=== PATIENT | female | born 1975 | race Caucasian/White ===

== ENCOUNTER → 2018-01-17 | Outpatient (CLI) | payer OTHER ==
--- NOTE | 2018-01-18 08:23 | XR ---
EXAMINATION TYPE: XR abdomen 1V DATE OF EXAM: 01/17/2018 COMPARISON: NONE INDICATION: Kidney stone TECHNIQUE: Single view abdomen supine view FINDINGS: There is a normal colonic bowel gas pattern. Small amount of nonspecific small bowel gas is present. No mass effect is evident. Psoas margins are normal. No organomegaly is present. No suspicious renal calcifications are evident. Postsurgical changes are at the L5-S1 level. IMPRESSION: 1. Unremarkable Abdomen
== END | disposition home or self-care (01) ==
LOC: RADXRMAIN 16:14
PROVIDERS: ATTEND Family Medicine
DX: N20.0 Calculus of kidney (principal)
CPT/HCPCS: 74018

== ENCOUNTER → 2018-01-21 | Outpatient (CLI) | payer OTHER ==
--- NOTE | 2018-01-21 21:38 | CT ---
EXAMINATION TYPE: CT abdomen pelvis wo con DATE OF EXAM: 01/21/2018 COMPARISON: NONE HISTORY: 42-year-old female Right flank pain, calculus of kidney CT DLP: 708.6 mGycm. Automated exposure control for dose reduction was used. TECHNIQUE: Contiguous axial scanning of the abdomen and pelvis without IV contrast. Coronal and sagit dangelo reconstructions performed. FINDINGS: Heart is normal size without pericardial effusion. Tiny hiatal hernia. Lung bases clear without pleur al effusion. Noncontrast appearance of the liver, gallbladder, adrenal glands, left kidney, spleen, and pancreas s how no gross abnormality. There is mild right-sided hydronephrosis with a 6 mm proximal third right ureteral calculus, axial im age 80 and coronal image 44. No dilated small bowel, free fluid, or free air. Scattered borderline size mid mesenteric lymph nodes measuring up to 6 mm are likely reactive/post in flammatory. No retroperitoneal lymphadenopathy. Normal appendix. Mild to moderate stool burden without pericolonic inflammatory change. Bladder partially urine distended. Uterus and both ovaries are visualized. Follicular changes in the left ovary. No abnormal fluid collection in the pelvis or pelvic lymphadenopathy seen. Bones: Posterior fusion changes L5-S1. No osseous destructive process. IMPRESSION: A 6 mm calculus in the proximal third right ureter with mild obstructive uropathy.
== END | disposition home or self-care (01) ==
LOC: RADCTMAIN 18:07
PROVIDERS: ATTEND Family Medicine
DX: N20.1 Calculus of ureter (principal)
CPT/HCPCS: 74176

== ENCOUNTER 2018-12-21 16:09 | Emergency (ER) | payer OTHER ==
[2018-12-21 16:14] VITALS: TEMP 98.8
[2018-12-21] MEDS ORDERED: diphenhydrAMINE 50 MG/ML 1 ML VIAL IVP STA (16:34)
[2018-12-21] MEDS ORDERED: IPRATROPIUM-ALBUTEROL 3 ML NEB INHALATION STA (16:37)
--- NOTE | 2018-12-21 16:37 | ED ---
SOB HPI - General Chief Complaint: Shortness of Breath Stated Complaint: JEFFERY Time Seen by Provider: 12/21/18 16:23 Source: patient, family, RN notes reviewed Mode of arrival: ambulatory Limitations: no limitations - History of Present Illness Initial Comments: This is a 43-year-old female was a nonsmoker no prior history of heart or lung disease personally who does however have a family history of heart disease. He had had his first bout of heart disease at age 45 who presents with cleansing the onset shortness of breath exertional dyspnea that began about 10 PM last evening. She states she did have rhinorrhea clear drainage and thought she was coming down with the usual upper respiratory infection/sinus infection. She did take some Tootie-Aurora plus medication and has never had a reaction to her before she continue to be dyspneic this morning into this afternoon. She was seen at [facility] outpatient clinic given a shot of steroids and an updraft treatment she still persisted having exertional dyspnea. She has slight cough with no phlegm production. She complains some chest tightness. Persistent exertional dyspnea. She presents now for further evaluation. She denies any fevers chills nausea vomiting sweats MD Complaint: shortness of breath, cough - Related Data Home Medications Medication Instructions Recorded Confirmed Dm/Acetaminophen/Doxylamine [Vicks 30 ml PO Q4H PRN 12/21/18 12/21/18 Nyquil Cold-Flu Liquid] Vitamin B Complex 1 cap PO DAILY 12/21/18 12/21/18 Previous Rx's Medication Instructions Recorded Benzonatate [Tessalon Perles] 100 mg PO TID #15 cap 12/21/18 Allergies Allergy/AdvReac Type Severity Reaction Status Date / Time cephalexin monohydrate Allergy Itching Verified 12/21/18 17:03 [From Keflex] loteprednol etabonate Allergy eyes Verified 12/21/18 17:03 [From Zylet] swelled shut tobramycin [From Zylet] Allergy eyes Verified 12/21/18 17:03 swelled shut Review of Systems ROS Statement: Those systems with pertinent positive or pertinent negative responses have been documented in the HPI. ROS Other: All systems not noted in ROS Statement are negative. Past Medical History Additional Past Medical History / Comment(s): kidney stones History of Any Multi-Drug Resistant Organisms: None Reported Past Surgical History: Ablation, Back Surgery, Tubal Ligation Past Psychological History: No Psychological Hx Reported Smoking Status: Never smoker Past Alcohol Use History: None Reported Past Drug Use History: None Reported General Exam - General Exam Comments Initial Comments: This is a well-developed well-nourished awake alert oriented 2 female patient does appear to be hyperventilating Limitations: no limitations General appearance: alert, anxious, in distress Head exam: Present: atraumatic, normocephalic, normal inspection Eye exam: Present: normal appearance, PERRL, EOMI. Absent: scleral icterus, conjunctival injection, periorbital swelling ENT exam: Present: normal exam, mucous membranes moist Neck exam: Present: normal inspection. Absent: tenderness, meningismus, lymphadenopathy Respiratory exam: Present: decreased breath sounds. Absent: respiratory distress, wheezes, rales, rhonchi, stridor Cardiovascular Exam: Present: normal rhythm, tachycardia, normal heart sounds. Absent: systolic murmur, diastolic murmur, rubs, gallop, clicks GI/Abdominal exam: Present: soft, normal bowel sounds. Absent: distended, tenderness, guarding, rebound, rigid Extremities exam: Present: normal inspection, full ROM, normal capillary refill. Absent: tenderness, pedal edema, joint swelling, calf tenderness Back exam: Present: normal inspection Neurological exam: Present: alert, oriented X3, CN II-XII intact Psychiatric exam: Present: normal affect, normal mood Skin exam: Present: warm, dry, intact, normal color. Absent: rash Course Vital Signs 12/21/18 12/21/18 12/21/18 16:10 16:42 16:51 Temperature 98.8 F Pulse Rate 127 H 114 H 110 H Respiratory 40 H Rate Blood Pressure 155/83 O2 Sat by Pulse 100 Oximetry 12/21/18 12/21/18 12/21/18 16:58 17:30 19:47 Temperature Pulse Rate 105 H 105 H 97 Respiratory 32 H 28 H 18 Rate Blood Pressure 126/84 126/83 121/81 O2 Sat by Pulse 100 100 96 Oximetry - Reevaluation(s) Reevaluation #1: 12/21/18 17:12 Patient states she did not get much relief from the DuoNeb treatment. Medical Decision Making - Medical Decision Making Patient was reevaluated several occasions she is feeling much improved at this time she will be discharged she still maintains 100% (room air pulse is return to below 100. She is improved she'll be discharged she is to continue with her medications and I will also place her on Tessalon for a short course. - Lab Data Result diagrams: 12/21/18 16:44 12/21/18 16:44 Lab Results 12/21/18 12/21/18 12/21/18 Range/Units 16:44 16:44 16:44 WBC 8.9 (3.8-10.6) k/uL RBC 5.04 (3.80-5.40) m/uL Hgb 14.2 (11.4-16.0) gm/dL Hct 42.4 (34.0-46.0) % MCV 84.2 (80.0-100.0) fL MCH 28.2 (25.0-35.0) pg MCHC 33.4 (31.0-37.0) g/dL RDW 13.0 (11.5-15.5) % Plt Count 279 (150-450) k/uL Neutrophils % 89 % Lymphocytes % 6 % Monocytes % 4 % Eosinophils % 1 % Basophils % 0 % Neutrophils # 7.9 H (1.3-7.7) k/uL Lymphocytes # 0.5 L (1.0-4.8) k/uL Monocytes # 0.4 (0-1.0) k/uL Eosinophils # 0.1 (0-0.7) k/uL Basophils # 0.0 (0-0.2) k/uL PT (9.0-12.0) sec INR (<1.2) APTT (22.0-30.0) sec D-Dimer (<0.60) mg/L FEU Sodium 139 (137-145) mmol/L Potassium 4.3 (3.5-5.1) mmol/L Chloride 109 H (98-107) mmol/L Carbon Dioxide 18 L (22-30) mmol/L Anion Gap 12 mmol/L BUN 11 (7-17) mg/dL Creatinine 0.95 (0.52-1.04) mg/dL Est GFR (CKD-EPI)AfAm 85 (>60 ml/min/1.73 sqM) Est GFR (CKD-EPI)NonAf 74 (>60 ml/min/1.73 sqM) Glucose 103 H (74-99) mg/dL Calcium 9.5 (8.4-10.2) mg/dL Magnesium 1.6 (1.6-2.3) mg/dL Total Bilirubin 1.0 (0.2-1.3) mg/dL AST 21 (14-36) U/L ALT 19 (9-52) U/L Alkaline Phosphatase 68 (38-126) U/L Total Creatine Kinase 55 (30-135) U/L CK-MB (CK-2) 0.3 (0.0-2.4) ng/mL CK-MB (CK-2) Rel Index 0.5 Troponin I <0.012 (0.000-0.034) ng/mL NT-Pro-B Natriuret Pep pg/mL Total Protein 7.6 (6.3-8.2) g/dL Albumin 4.5 (3.5-5.0) g/dL TSH 2.390 (0.465-4.680) mIU/L Urine Color Urine Appearance (Clear) Urine pH (5.0-8.0) Ur Specific [place] (1.001-1.035) Urine Protein (Negative) Urine Glucose (UA) (Negative) Urine Ketones (Negative) Urine Blood (Negative) Urine Nitrite (Negative) Urine Bilirubin (Negative) Urine Urobilinogen (<2.0) mg/dL Ur Leukocyte Esterase (Negative) Urine RBC (0-5) /hpf Urine WBC (0-5) /hpf Ur Squamous Epith Cells (0-4) /hpf Urine Bacteria (None) /hpf Urine Mucus (None) /hpf Urine HCG, Qual (Not Detectd) 12/21/18 12/21/18 12/21/18 Range/Units 16:44 16:44 18:18 WBC (3.8-10.6) k/uL RBC (3.80-5.40) m/uL Hgb (11.4-16.0) gm/dL Hct (34.0-46.0) % MCV (80.0-100.0) fL MCH (25.0-35.0) pg MCHC (31.0-37.0) g/dL RDW (11.5-15.5) % Plt Count (150-450) k/uL Neutrophils % % Lymphocytes % % Monocytes % % Eosinophils % % Basophils % % Neutrophils # (1.3-7.7) k/uL Lymphocytes # (1.0-4.8) k/uL Monocytes # (0-1.0) k/uL Eosinophils # (0-0.7) k/uL Basophils # (0-0.2) k/uL PT 9.9 (9.0-12.0) sec INR 0.9 (<1.2) APTT 22.5 (22.0-30.0) sec D-Dimer 0.38 (<0.60) mg/L FEU Sodium (137-145) mmol/L Potassium (3.5-5.1) mmol/L Chloride (98-107) mmol/L Carbon Dioxide (22-30) mmol/L Anion Gap mmol/L BUN (7-17) mg/dL Creatinine (0.52-1.04) mg/dL Est GFR (CKD-EPI)AfAm (>60 ml/min/1.73 sqM) Est GFR (CKD-EPI)NonAf (>60 ml/min/1.73 sqM) Glucose (74-99) mg/dL Calcium (8.4-10.2) mg/dL Magnesium (1.6-2.3) mg/dL Total Bilirubin (0.2-1.3) mg/dL AST (14-36) U/L ALT (9-52) U/L Alkaline Phosphatase (38-126) U/L Total Creatine Kinase (30-135) U/L CK-MB (CK-2) (0.0-2.4) ng/mL CK-MB (CK-2) Rel Index Troponin I (0.000-0.034) ng/mL NT-Pro-B Natriuret Pep 73 pg/mL Total Protein (6.3-8.2) g/dL Albumin (3.5-5.0) g/dL TSH (0.465-4.680) mIU/L Urine Color Urine Appearance (Clear) Urine pH (5.0-8.0) Ur Specific [place] (1.001-1.035) Urine Protein (Negative) Urine Glucose (UA) (Negative) Urine Ketones (Negative) Urine Blood (Negative) Urine Nitrite (Negative) Urine Bilirubin (Negative) Urine Urobilinogen (<2.0) mg/dL Ur Leukocyte Esterase (Negative) Urine RBC (0-5) /hpf Urine WBC (0-5) /hpf Ur Squamous Epith Cells (0-4) /hpf Urine Bacteria (None) /hpf Urine Mucus (None) /hpf Urine HCG, Qual Not Detected (Not Detectd) 12/21/18 Range/Units 18:18 WBC (3.8-10.6) k/uL RBC (3.80-5.40) m/uL Hgb (11.4-16.0) gm/dL Hct (34.0-46.0) % MCV (80.0-100.0) fL MCH (25.0-35.0) pg MCHC (31.0-37.0) g/dL RDW (11.5-15.5) % Plt Count (150-450) k/uL Neutrophils % % Lymphocytes % % Monocytes % % Eosinophils % % Basophils % % Neutrophils # (1.3-7.7) k/uL Lymphocytes # (1.0-4.8) k/uL Monocytes # (0-1.0) k/uL Eosinophils # (0-0.7) k/uL Basophils # (0-0.2) k/uL PT (9.0-12.0) sec INR (<1.2) APTT (22.0-30.0) sec D-Dimer (<0.60) mg/L FEU Sodium (137-145) mmol/L Potassium (3.5-5.1) mmol/L Chloride (98-107) mmol/L Carbon Dioxide (22-30) mmol/L Anion Gap mmol/L BUN (7-17) mg/dL Creatinine (0.52-1.04) mg/dL Est GFR (CKD-EPI)AfAm (>60 ml/min/1.73 sqM) Est GFR (CKD-EPI)NonAf (>60 ml/min/1.73 sqM) Glucose (74-99) mg/dL Calcium (8.4-10.2) mg/dL Magnesium (1.6-2.3) mg/dL Total Bilirubin (0.2-1.3) mg/dL AST (14-36) U/L ALT (9-52) U/L Alkaline Phosphatase (38-126) U/L Total Creatine Kinase (30-135) U/L CK-MB (CK-2) (0.0-2.4) ng/mL CK-MB (CK-2) Rel Index Troponin I (0.000-0.034) ng/mL NT-Pro-B Natriuret Pep pg/mL Total Protein (6.3-8.2) g/dL Albumin (3.5-5.0) g/dL TSH (0.465-4.680) mIU/L Urine Color Yellow Urine Appearance Cloudy H (Clear) Urine pH 8.0 (5.0-8.0) Ur Specific [place] 1.023 (1.001-1.035) Urine Protein 1+ H (Negative) Urine Glucose (UA) Negative (Negative) Urine Ketones 2+ H (Negative) Urine Blood Large H (Negative) Urine Nitrite Negative (Negative) Urine Bilirubin Negative (Negative) Urine Urobilinogen <2.0 (<2.0) mg/dL Ur Leukocyte Esterase Moderate H (Negative) Urine RBC 31 H (0-5) /hpf Urine WBC 7 H (0-5) /hpf Ur Squamous Epith Cells 6 H (0-4) /hpf Urine Bacteria Few H (None) /hpf Urine Mucus Few H (None) /hpf Urine HCG, Qual (Not Detectd) - EKG Data -: EKG Interpreted by Me EKG shows normal: sinus rhythm (EKG shows sinus tachycardia rate 109. Interval 122 QRS duration 72 daily since QTC 340/[address]-T wave changes) - Radiology Data Radiology results: report reviewed (I did review the imaging and reports no acute findings.), image reviewed Disposition Clinical Impression: Acute bronchospasm, Upper respiratory infection, Dyspnea, Bronchitis Disposition: HOME SELF-CARE Condition: Good Instructions (If sedation given, give patient instructions): Bronchospasm (ED) , Acute Bronchitis (ED), Upper Respiratory Infection (ED) Prescriptions: Benzonatate [Tessalon Perles] 100 mg PO TID #15 cap Is patient prescribed a controlled substance at d/c from ED?: No Referrals: Lucien Chavez DO [Primary Care Provider] - 1-2 days
[2018-12-21 17:15] LABS: Basophils % (A) 0 %; Eosinophils # (A) 0.1 k/uL (0-0.7); Eosinophils % (A) 1 %; HCT 42.4 % (34.0-46.0); HGB 14.2 gm/dL (11.4-16.0); Lymphocytes # (A) 0.5 k/uL (1.0-4.8); Lymphocytes % (A) 6 %; MCH 28.2 pg (25.0-35.0); MCHC 33.4 g/dL (31.0-37.0); MCV 84.2 fL (80.0-100.0); Mean Platelet Volume 6.6; Monocytes # (A) 0.4 k/uL (0-1.0); Monocytes % (A) 4 %; Neutrophils # (A) 7.9 k/uL (1.3-7.7); Neutrophils % (A) 89 %; Platelet Count 279 k/uL (150-450); RBC 5.04 m/uL (3.80-5.40); WBC 8.9 k/uL (3.8-10.6)
--- NOTE | 2018-12-21 17:25 | XR ---
EXAMINATION TYPE: XR chest 2V DATE OF EXAM: 12/21/2018 COMPARISON: NONE HISTORY: Short of breath TECHNIQUE: Frontal and lateral views of the chest are obtained. FINDINGS: Heart and mediastinum are normal. Lungs are clear. Diaphragm is normal. Bony thorax is nor mal. There are chest leads. IMPRESSION: Normal chest.
[2018-12-21 17:27] LABS: Albumin 4.5 g/dL (3.5-5.0); Calcium 9.5 mg/dL (8.4-10.2); Magnesium 1.6 mg/dL (1.6-2.3); Potassium 4.3 mmol/L (3.5-5.1); Total Protein 7.6 g/dL (6.3-8.2)
[2018-12-21 17:28] LABS: D-Dimer 0.38 mg/L FEU (<0.60); INR 0.9 (<1.2); Partial Thromboplastin Time 22.5 sec (22.0-30.0); Prothrombin Time 9.9 sec (9.0-12.0)
[2018-12-21 17:31] LABS: Creatine Kinase 55 U/L (30-135)
[2018-12-21] MEDS ORDERED: MAGNESIUM SULFATE-D5W PMX 1 GM in DEXTROSE/WATER 1 100ML.BAG IVPB ONE (17:33)
[2018-12-21 17:44] LABS: Creatine Kinase MB 0.3 ng/mL (0.0-2.4); Troponin I <0.012 ng/mL (0.000-0.034)
[2018-12-21] MEDS ORDERED: KETOROLAC 30 MG/ML 1 ML VIAL IVP STA (18:05)
[2018-12-21 18:50] LABS: Appearance,Urine Cloudy (Clear); Bacteria,Urine Few /hpf; Bilirubin,Urine Negative (Negative); Blood,Urine Large (Negative); Color,Urine Yellow; Glucose,Urine (UA) Negative (Negative); Ketones,Urine 2+ (Negative); Leukocyte Esterase,Urine Moderate (Negative); Mucus,Urine Few /hpf; Nitrite,Urine Negative (Negative); Protein,Urine 1+ (Negative); RBC,Urine 31 /hpf (0-5); Specific Gravity,Urine 1.023 (1.001-1.035); Squamous Epithelial Cell,Urine 6 /hpf (0-4); Urobilinogen,Urine <2.0 mg/dL (<2.0); WBC,Urine 7 /hpf (0-5)
[2018-12-21 19:49] VITALS: BP 121/81; PULSE 97; RESP 18
== END 2018-12-21 20:07 | disposition home or self-care (01) ==
LOC: EC 16:09
DX: J40 Bronchitis, not specified as acute or chronic (principal); J06.9 Acute upper respiratory infection, unspecified; J98.01 Acute bronchospasm; Z88.1 Allergy status to other antibiotic agents; Z88.8 Allergy status to other drugs, medicaments and biological substances
CPT/HCPCS: 36415; 94640; 93005; 85379; 83880; 80053; 84443; 82550; 82553; 83735; 84484; 85025; 85610; 85730; 81001; 81025; 87040; 71046; 99285; 96365; 96375 ×2; J1200; J1885; J3475

== ENCOUNTER → 2019-02-09 | Day surgery (SDC) | payer OTHER ==
[2019-02-05 08:45] VITALS: BMI 31.1
[~2019-02-09] MED LIST: LACTATED RINGERS 1,000 ML IV SCH; LIDOCAINE 1% 20 ML VIAL (10MG/ML) FOR IV START INTRADERMA PRN; LIDOCAINE 1% INJ 10MG/ML (20 ML MDV) ONE; PROPOFOL 10 MG/ML 20 ML VIAL IV ONE
[2019-02-09 07:58] VITALS: RESP 16; TEMP 97
--- NOTE | 2019-02-09 08:46 | P.PCN ---
Date of Procedure: 02/09/19 Procedure(s) Performed: Procedure: Esophagogastroduodenoscopy and biopsy. Preoperative diagnosis: Throat complaints with intermittent "throat swelling", rule out reflux disease. Postoperative diagnosis: 1. Small sliding hiatal hernia with LA grade B distal esophagitis. 2. Minimal antral gastritis. 3. Multiple biopsies obtained from the duodenum, antrum and esophagus. Preparation and sedation: Was provided by anesthesia. Brief clinical history: The patient is a 43-year-old female was been experienc ing episodes of throat swelling for the last year, mostly at night, without any heartburn. This has responded partially to acid suppressive therapy. No dysphagia or other alarm symptoms. This evaluation is to assess for esophagitis, complicated reflux disease or other pathology. Procedure: With the patient on her left lateral decubitus position and after informed consent and adequate sedation, I passed the Olympus-GIF H 190 video upper endoscope through the cricopharyngeus down the esophagus. GE junction was around 38 cm from the incisors and there was a small sliding hiatal hernia. The distal esophagus showed short linear erosion terminating at the GE junction but no ulcers, strictures or Lopez's esophagus. The endoscope was then passed into the stomach which was insufflated with air and inspected in detail including the retroflex view in the cardia. There was some minimal mottling and erythema in the antrum but no ulcers or erosions. Pyloric channel, duodenal bulb, post bulbar area and descending duodenum appeared within normal limits. I obtained biopsies from the duodenum, antrum and esophagus then the endoscope was withdrawn. The patient tolerated the procedure well. Plan: The patient was reassured. Will await biopsy results. She will continue antireflux diet and measures and current therapy and she will follow-up with you as planned. I will be happy to see in the office of her symptoms persist.
[2019-02-09 08:57] VITALS: BP 118/81; PULSE 78
== END | disposition home or self-care (01) ==
LOC: ORWHC2ENDO 07:31
DX: K21.0 Gastro-esophageal reflux disease with esophagitis (principal); K29.50 Unspecified chronic gastritis without bleeding; K44.9 Diaphragmatic hernia without obstruction or gangrene; Z88.1 Allergy status to other antibiotic agents; Z88.8 Allergy status to other drugs, medicaments and biological substances; Z79.899 Other long term (current) drug therapy
CPT/HCPCS: 81025; 88305; 43239; J2001; J2704

== ENCOUNTER → 2020-08-31 | Outpatient (CLI) | payer OTHER ==
--- NOTE | 2020-08-31 11:08 | XR ---
EXAMINATION TYPE: XR knee complete RT DATE OF EXAM: 08/31/2020 CLINICAL HISTORY: pain TECHNIQUE: Three views of the right knee are obtained. COMPARISON: None. FINDINGS: There is no acute fracture/dislocation. The tri-compartment joint spaces appear within no rmal limits. The overlying soft tissue appears unremarkable. IMPRESSION: There is no acute fracture or dislocation.ICD 10 NO FRACTURE, INITIAL EVALUATION
== END | disposition home or self-care (01) ==
LOC: RADXRMAIN 10:47
PROVIDERS: ATTEND Family Medicine
DX: M17.11 Unilateral primary osteoarthritis, right knee (principal)

== ENCOUNTER → 2020-12-19 | Outpatient (CLI) | payer OTHER ==
--- NOTE | 2020-12-19 12:14 | US ---
EXAMINATION TYPE: US pelvis complete transvag DATE OF EXAM: 12/19/2020 COMPARISON: NONE CLINICAL HISTORY: R10.2 Pelvic and Perineal pain. TECHNIQUE: Transvaginal (TV) and Transabdominal (TA) . Date of LMP: EXAM MEASUREMENTS: Uterus: 9.4 x 5.3 x 5.9 cm Endometrial Stripe: see below Right Ovary: 2.5 x 1.9 x 2.0 cm Left Ovary: 1.9 x 1.5 x 1.6 cm 1. Uterus: Anteverted 2. Endometrium: fluid collection probably in the endometrium, unable to see normal endometrial tissue to measure endometrium, irregular fluid collection measures 3.1 x 0.7 x 1.6cm, there appears to be a soft tissue mass within measuring 1.2cm 3. Right Ovary: wnl 4. Left Ovary: wnl 5. Bilateral Adnexa: wnl 6. Posterior cul-de-sac: wnl IMPRESSION: 1. Endometrial fluid with the soft tissue mass suggested as noted above. Tissue diagnosis and direct visualization recommended.
== END | disposition home or self-care (01) ==
LOC: RADUSWWP 10:07
PROVIDERS: ATTEND Nurse Practitioner Family
DX: N85.8 Other specified noninflammatory disorders of uterus (principal); M79.89 Other specified soft tissue disorders
CPT/HCPCS: 76830; 76856

== ENCOUNTER 2021-02-02 06:00 | Day surgery (SDC) | payer OTHER ==
[2021-01-31 13:31] VITALS: BMI 31.1
--- NOTE | 2021-02-01 14:30 | P.HPOB ---
History of Present Illness H&P Date: 02/01/21 Chief Complaint: Pelvic pain, history of endometriosis This is a 45 y.o. female, 1, para 1, who presents for laparoscopy, possible ablation of endometriosis, possible lysis of adhesions, possible drainage of ovarian cysts due to pelvic pain. She complains of acute onset of right lower quadrant an suprapubic pain. It was initially was sharp and stabbing, and later changed to a dull ache. It also radiated down right thigh. She did start a period about a week after pain started. The period was heavier and had more clots than she usually has been having since her ablation. Pelvic ultrasound showed uterus measuring 9.4 x 5.3 x 5.9 cm, endometrium had fluid c ollection measuring 3.1 x 0.7 x 1.6 cm with soft tissue mass measuring 1.2 cm. Ovaries appeared normal. She did have a tubal ligation and endometrial ablation in 2015. Since her ablation menses had been occuring every 21-22 days, lasting 1-3 days and very light. OB Hx: . History of 1 vaginal delivery. [employer] Hx: No history of STDs. History of tubal ligation. 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 Review of Systems Constitutional: Denies chills, Denies fever Eyes: denies blurred vision, denies pain Ears, nose, mouth and throat: Denies headache, Denies sore throat Cardiovascular: Denies chest pain, Denies shortness of breath Respiratory: Denies cough Gastrointestinal: Reports abdominal pain, Reports heartburn Genitourinary: Reports dysmenorrhea, Reports pelvic pain Menstruation: Reports menses 1-7 days Musculoskeletal: Reports low back pain, Reports myalgias Integumentary: Denies pruritus, Denies rash Neurological: Denies numbness, Denies weakness Psychiatric: Denies anxiety, Denies depression Past Medical History Past Medical History: GERD/Reflux Additional Past Medical History / Comment(s): Hx kidney stone x1. Endometriosis, Rt ovarian cyst, severe pain during menses 12/2020. History of Any Multi-Drug Resistant Organisms: None Reported Past Surgical History: Back Surgery, Tubal Ligation (with ablation of endometriosis, 2016), Uterine Ablation Additional Past Surgical History / Comment(s): LASIK-BOTH EYES, Back surgery x2 - laminectomy, then fusion. Past Anesthesia/Blood Transfusion Reactions: Family History of Problems w/ Anesthesia Additional Past Anesthesia/Blood Transfusion Reaction / Comment(s): SISTER CODED AFTER Back Surgery - QUIT BREATHING - WAS TOLD THEY THOUGHT IT WAS HER SLEEP APNEA AND DILAUDID." Past Psychological History: No Psychological Hx Reported Smoking Status: Never smoker Past Alcohol Use History: None Reported Past Drug Use History: None Reported - Past Family History Mother Family Medical History: No Reported History Medications and Allergies Home Medications Medication Instructions Recorded Confirmed Type Ibuprofen [Motrin Ib] 800 mg PO Q8H PRN 01/31/21 02/02/21 History Allergies Allergy/AdvReac Type Severity Reaction Status Date / Time cephalexin monohydrate Allergy Itching Verified 01/31/21 13:14 [From Keflex] loteprednol etabonate Allergy eyes Verified 01/31/21 13:14 [From Zylet] swelled shut tobramycin [From Zylet] Allergy eyes Verified 01/31/21 13:14 swelled shut Exam Osteopathic Statement: *. No significant issues noted on an osteopathic structural exam other than those noted in the History and Physical/Consult. HEENT: within normal limits Heart: regular rate and rhythm Lungs: clear to auscultation bilaterally Abdomen: soft, mild RLQ tenderness Pelvic: uterus anteverted, mildly tender, no adnexal masses, tender R. adnexa. Scant brown/bloody discharge Extremities: neg. Shreya's. Assessment and Plan (1) Pelvic pain Current Visit: No Status: Acute Code(s): R10.2 - PELVIC AND PERINEAL PAIN SNOMED Code(s): 90947950 (2) Endometriosis Current Visit: No Status: Acute Code(s): N80.9 - ENDOMETRIOSIS, UNSPECIFIED SNOMED Code(s): 576807776 Plan: Proceed with laparoscopy, possible ablation of endometriosis, possible lysis of adhesions, possible drainage of ovarian cysts. I have discussed the risks, benefits, and alternative therapies for the above- mentioned procedure and for both sedation/anesthesia as well as necessary blood products administration, if indicated, as they pertain to this patient. The patient has indicated her understanding and acceptance of the risks and procedures discussed.
[~2021-02-02 06:00] MED LIST changes: +HYDROmorphone 0.5 MG/0.5 ML SYRINGE IVP PRN; -LIDOCAINE 1% 20 ML VIAL (10MG/ML) FOR IV START INTRADERMA PRN; -LIDOCAINE 1% INJ 10MG/ML (20 ML MDV) ONE; +ONDANSETRON 4 MG/2 ML VIAL IVP ONE; -PROPOFOL 10 MG/ML 20 ML VIAL IV ONE; +Pre Op ABX Message 1 EACH MISC MISCELLANE ONE
[2021-02-02 06:21] VITALS: RESP 16
[2021-02-02] MEDS ORDERED: LIDOCAINE 1% (10MG/ML) FOR IV START INTRADERMA ONE (06:29)
[2021-02-02] MEDS ORDERED: BUPIVACAINE (PF) 0.25% 30 ML VIAL SQ ONE ×2 (07:24→08:12)
[2021-02-02] MEDS ORDERED: HYDROmorphone (PF) 1 MG/ML ONE (07:34)
[2021-02-02] MEDS ORDERED: MIDAZOLAM 2 MG/2 ML VIAL ONE (07:34)
[2021-02-02] MEDS ORDERED: ROCURONIUM 10 MG/ML (5 ML VIAL) IV ONE (07:34)
[2021-02-02] MEDS ORDERED: GLYCOPYRROLATE 0.2 MG/ML 2 ML VIAL ONE (07:34)
[2021-02-02] MEDS ORDERED: NEOSTIGMINE 1 MG/ML 10 ML VIAL ONE (07:34)
[2021-02-02] MEDS ORDERED: SUCCINYLCHOLINE CHLORIDE 100 MG/5 ML SYR IV ONE (07:34)
[2021-02-02] MEDS ORDERED: PROPOFOL 10 MG/ML 20 ML VIAL IV ONE (07:34)
[2021-02-02] MEDS ORDERED: LIDOCAINE 1% INJ 10MG/ML (20 ML MDV) ONE (07:34)
[2021-02-02] MEDS ORDERED: fentaNYL (PF) 50 MCG/ML 2 ML AMP ONE (07:34)
--- NOTE | 2021-02-02 08:24 | P.OP ---
Date of Procedure: 02/02/21 Preoperative Diagnosis: Pelvic pain History of endometriosis Postoperative Diagnosis: Pelvic pain Endometriosis Procedure(s) Performed: Laparoscopy with ablation of endometriosis implants Anesthesia: AINSLEY Surgeon: Domi Hadley Estimated Blood Loss (ml): 10 Pathology: none sent Condition: stable Disposition: same day Indications for Procedure: This is a 45 y.o. female, 1, para 1, who presents for laparoscopy, possible ablation of endometriosis, possible lysis of adhesions, possible drainage of ovarian cysts due to pelvic pain. She complains of acute onset of right lower quadrant an suprapubic pain. It was initially was sharp and stabbing, and later changed to a dull ache. It also radiated down right thigh. She did start a period about a week after pain started. The period was heavier and had more clots than she usually has been having since her ablation. Pelvic ultrasound showed uterus measuring 9.4 x 5.3 x 5.9 cm, endometrium had fluid collection measuring 3.1 x 0.7 x 1.6 cm with soft tissue mass measuring 1.2 cm. Ovaries appeared normal. She did have a tubal ligation and endometrial ablation in 2016. Since her ablation menses had been occuring every 21-22 days, lasting 1-3 days and very light. Operative Findings: Uterus is small with normal contour. Both ovaries appear normal. Tubes show evidence of previous tubal ligation. There is 2 small powder burn implants of endometriosis in the right cul-de-sac and the left cul-de-sac. No other abnormalities are visualized. Description of Procedure: The patient is taken to the operating room and she is placed in the dorsal lithotomy position. She is prepped and draped in the normal sterile fashion. Her bladder is drained with a catheter and then removed. Examination is performed under anesthesia. Uterus is found to be anteverted, with no adnexal masses palpated. A bivalve speculum was placed in the patient's vagina. A tenaculum was used to grasp the anterior lip of the cervix. Sound was unable to be completed due to previous ablation. [place] uterine manipulator was inserted and attached to the single-tooth tenaculum. The bivalve speculum was removed and gloves are changed. Next the gloves are changed and attention is turned to the abdomen. The inferotemporal fold was grasped with 2 Allis clamps and a transverse fashion. A towel clip was placed above the Ton for retraction. A 5 mm disposable blade this trocar was then inserted into the peritoneal cavity under direct visualization. The towel clip did slip off one time and possible small scratch in her skin. Was replaced with another towel clip for retraction. Once inside, pneumoperitoneum was achieved with CO2 gas. Inspection of pelvic contents was carried out. She was placed in slight Trendelenburg position. Next 2 spots of endometriosis were noted in the posterior cul-de-sac. A ball- tipped instrument was placed through the inferior trocar and Bovie cautery was used to cauterize these 2 implants. Excellent hemostasis is noted. Pictures ar e taken. Otherwise no other abnormalities are noted. The pneumoperitoneum is released. The inferior trocar is removed under direct visualization. The upper trocar is then removed. The incisions are then closed with 4-0 undyed Vicryl suture in a subcuticular fashion. Impression sites were injected with quarter percent Marcaine. Approximately 6 mL are used. Next the uterine manipulator and single-tooth tenaculum removed. There is noted to be some bleeding from the tenaculum site. This was grasped with a ring forcep for hemostasis. Once the ring forcep was removed no active bleeding is noted. All incisions are removed from the vagina. All sponge and needle counts are correct. The patient is then taken to recovery room in stable condition. Bacitracin was placed on the scratch on her skin above the umbilicus. A Band-Aid was also placed.
[2021-02-02] MEDS ORDERED: KETOROLAC 15 MG/ML 1 ML VIAL IVP ONE (08:36)
[2021-02-02 08:39] VITALS: TEMP 97.8
[2021-02-02 10:40] VITALS: BP 118/78; PULSE 68
== END 2021-02-02 10:49 | disposition home or self-care (01) ==
LOC: OR 06:00
PROVIDERS: ATTEND Obstetrics & Gynecology
DX: N80.3 Endometriosis of pelvic peritoneum (principal); K21.9 Gastro-esophageal reflux disease without esophagitis; Z88.1 Allergy status to other antibiotic agents; Z98.51 Tubal ligation status; Z98.890 Other specified postprocedural states; Z87.442 Personal history of urinary calculi; Z87.42 Personal history of other diseases of the female genital tract; Z98.1 Arthrodesis status; Z88.8 Allergy status to other drugs, medicaments and biological substances; Z84.89 Family history of other specified conditions
CPT/HCPCS: 58662; 81025; J2250; J2710; J2405; J2001; J3010; J1170; J1885; J0330; J2704